=== PATIENT | male | born 1940 | race Caucasian/White ===

== ENCOUNTER → 2017-03-31 | Day surgery (SDC) | payer MEDICARE ==
[~2017-03-31] MED LIST: ACETAMINOPHEN 1000 MG/100 ML 100 ML IV ONE; BUPIVACAINE/EPINEPHRINE 0.25% 50 ML VIAL ONE; ONDANSETRON HCL 4 MG/2 ML VIAL IV PUSH ONE; PROPOFOL 200 MG/20 ML AMP IV ONE; SODIUM CHLOR 0.9% 1000 ML BAG IV ONE; ceFAZolin 2 GM PREMIX 50 ML ONE
--- NOTE | 2017-03-31 16:51 | TN ---
cc: SAIDA CARTER M.D. DATE OF SURGERY: 03/31/2017 PREOPERATIVE DIAGNOSIS Symptomatic left inguinal hernia. POSTOPERATIVE DIAGNOSIS Symptomatic left inguinal hernia. PROCEDURE: Open repair, left inguinal hernia with mesh. Excision spermatic cord lipoma. SURGEON: Dr. Saida Carter [employer] WORKER: Isabella Ren, MS3 ANESTHESIA: General. 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 He had prior right inguinal hernia repair over 20 years ago. He indicates the hernia can be painful and sometimes he has to lay down to reduce it. INTRAOPERATIVE FINDINGS: Left indirect inguinal hernia defect with small hernia sac reduced, left spermatic cord lipomatous material excised and discarded, weak inguinal floor. DESCRIPTION OF PROCEDURE IN DETAIL: The patient identified as John Wick, taken to the operating room, placed in supine position. Sequential compression devices placed on bilateral lower extremities. Following induction of adequate general anesthesia with laryngeal mask, the left groin was prepped and draped in the usual sterile fashion with Betadine. A time out procedure was performed. Following completion of time out procedure to everyone's satisfaction within the room, a proposed left groin incision was made with a marking pen and infiltrated with local anesthetic. Incision was carried out with a scalpel and hemostasis controlled with electrocautery. Dissection continued posteriorly through the subcutaneous fatty tissue, Joselo fascia down to the level of the external oblique fascia. More local anesthetic was placed beneath the left external oblique fascial fibers and they were opened in their direction with scalpel and Metzenbaum scissor. A thinned ilioinguinal nerve branch was identified and avoided. The spermatic cord and its contents were from surrounding tissues to the level of pubic tubercle and isolated with a Luis E drain. Thinned anterior cremasteric fibers were divided with electrocautery. Posterior laterally spermatic cord lipomatous material was from the surrounding cord structures and clamped at its base with a hemostat and the redundant fatty tissue amputated and discarded. The base was suture ligated with 2-0 Vicryl suture ligature. The anteromedial surface examined and there was an old scar and thickened indirect inguinal hernia sac, was relatively small, 4 cm protruding through the internal inguinal ring. It was from surrounding tissues through the internal inguinal ring and it felt as if there was adherent bowel within it. The sac was then not opened. It was reduced. The inguinal floor was then examined. There was obvious weakness of the inguinal floor. Important anatomic structures were identified including the pubic tubercle, Anant's ligament and the shelving edge of the inguinal ligament inferiorly and laterally and the internal oblique fascia superiorly and medially. The atrium lightweight polypropylene mesh was customized incised from a 3 x 6 inch piece and placed to reinforce the inguinal floor and to cover the internal inguinal ring. The mesh was held in position with interrupted zero Ethilon sutures which were placed above and below the pubic tubercle into Anant's ligament and the shelving edge of the inguinal ligament inferiorly and laterally into the internal oblique fascia superiorly and medially. Care was taken to avoid any nerve structures occluding ilioinguinal, iliohypogastric and genital branch of the genitofemoral nerves. The tails of the mesh were created using a scissor, allowing for passage of the spermatic cord through the tails of the mesh. The tails were reapproximated lateral to the spermatic cord and tucked laterally, widely, beneath the external oblique fascia. A single 0 Ethibond suture was used to approximate the tails just lateral to the spermatic cord, taking care to avoid entrapping or strangulating the spermatic cord. Irrigation ensued. There was no evidence of bleeding. Generous portion of local anesthetic was placed within the surgical field and around the spermatic cord. The external oblique fascial fibers were closed with running 3-0 Vicryl suture. 3-0 Vicryl was placed in Joselo's fascia and skin was approximated with running 4-0 Monocryl subcuticular suture. Dressings were applied with Mastisol and half inch brown Steri-Strips, gauze and Tegaderm. The patient tolerated the procedure without apparent complication. Sponge, needle and instrument counts were correct at the end of the case. MD TINO Ibrahim/BARBI /3:43 PM /3:57 PM
== END | disposition home or self-care (01) ==
LOC: ESDC 13:21
PROVIDERS: ATTEND Surgery Trauma Surgery
DX: K40.90 Unilateral inguinal hernia, without obstruction or gangrene, not specified as recurrent (principal); D17.6 Benign lipomatous neoplasm of spermatic cord
CPT/HCPCS: 00830; 49505; C1781; J0131; J0690; J2405; J3010; J7030